=== PATIENT | female | born 1990 | race African-American/Black ===

== ENCOUNTER 2018-01-08 20:26 | Emergency (ER) | payer MEDICAID ==
[~2018-01-08] VITALS: Ht 154.9 cm; Wt 48.0 kg
[2018-01-09] MEDS ORDERED: HYDROCODONE/ACETAMINOPHEN 5/325MG TABLET PO ONE (02:45)
[2018-01-09 03:23] VITALS: BP 99/57
== END 2018-01-09 05:13 | disposition home or self-care (01) ==
LOC: ER 01-09 01:12
DX: S62.394A Other fracture of fourth metacarpal bone, right hand, initial encounter for closed fracture (principal); X58.XXXA Exposure to other specified factors, initial encounter; Y93.9 Activity, unspecified; Y92.89 Other specified places as the place of occurrence of the external cause
CPT/HCPCS: 29125; 73130; 81025; 99284